=== PATIENT | female | born 1980 | race Caucasian/White ===

== ENCOUNTER 2020-12-10 16:42 | Emergency (ER) | payer OTHER ==
[2020-12-10 17:43] LABS: HEMOGLOBIN 10.7 gm/dl (12.3-15.3); RED BLOOD COUNT 4.25 M/UL (4.00-5.10); WHITE BLOOD COUNT 11.8 K/UL (4.5-11.0)
[2020-12-10 18:02] LABS: BUN/CREATININE RATIO 19 (0-10)
[2020-12-10] MEDS ORDERED: CEFUROXIME500 MG PO (20:00)
[2020-12-10] MEDS ORDERED: ZOFRAN4 MG PO (20:00)
== END 2020-12-10 20:15 | disposition home or self-care (01) ==
LOC: ER1 16:42
PROVIDERS: Preventive Medicine Occupational Medicine
DX: N39.0 Urinary tract infection, site not specified (principal)
CPT/HCPCS: 80053; 81001; 83690; 85025; 85652; 86140; 87077; 87086; 87186; 96374; 96375; 99284; J0696; J1885; J2405; J7030